=== PATIENT | female | born 1955 | race African-American/Black ===

== ENCOUNTER 2016-10-10 21:59 | Observation (INO) | payer MEDICARE, OTHER ==
[~2016-10-10] VITALS: Ht 165.1 cm; Wt 140.5 kg
[2016-10-11] VITALS (7 sets, daily range): BP systolic 125–156; RESP 16–22; TEMP 98.5–99.3; Ht 165.1 cm; Wt 140.5 kg
[2016-10-11] MEDS ORDERED: SODIUM CHLORIDE 0.9% 100 ML IV ONE (00:49)
[2016-10-11] MEDS ORDERED: NITROGLYCERIN 2% OINT 1 INCH PKT TOPICAL ONE (00:49)
[2016-10-11] MEDS ORDERED: CEFTRIAXONE 1 GM VIAL ONE (00:49)
[2016-10-11] MEDS ORDERED: SODIUM CHLORIDE 0.9% 1,000 ML ONE (00:49)
[2016-10-11] MEDS ORDERED: Furosemide 40 MG/4 ML VIAL ONE (00:49)
[2016-10-11] MEDS ORDERED: AZITHROMYCIN 500 MG VIAL IV ONE (01:51)
[2016-10-11] MEDS ORDERED: SODIUM CHLORIDE 0.9% 250 ML IV ONE (01:52)
[2016-10-11] MEDS ORDERED: GLUCAGON 1 MG VIAL IM PRN (03:20)
[2016-10-11] MEDS ORDERED: SALINE FLUSH 10 ML FLUSH PRN (03:20)
[2016-10-11] MEDS ORDERED: DEXTROSE 50% SYRINGE 50 ML IV PRN (03:20)
[2016-10-11] MEDS: SODIUM CHLORIDE 0.9% FLUSH BAG 500 ML IV SCH (06:15)
[2016-10-11] MEDS ORDERED: ARTIF TEARS OP SOLN 0.4ML EYE EACH PRN (08:00)
[2016-10-11] MEDS ORDERED: OXYCODONE/APAP 5/325 TAB PO PRN (08:00)
[2016-10-11] MEDS: SALINE FLUSH 10 ML FLUSH SCH ×2 (08:53→21:26)
[2016-10-11] MEDS: DORZOL/TIM 2%-0.5% 10 ML EYE EACH SCH ×2 (08:54→21:32)
[2016-10-11] MEDS: DOCUSATE SOD 100 MG CAP PO SCH (08:56)
[2016-10-11] MEDS: GABAPENTIN 300 MG CAP PO SCH ×3 (08:56→21:27)
[2016-10-11] MEDS: FOLIC ACID 1 MG TAB PO SCH (08:57)
[2016-10-11] MEDS: LEVEMIR INSULIN SUBQ SCH ×2 (10:01→21:28)
[2016-10-11] MEDS: CEFTRIAXONE 1 GM in SODIUM CHLORIDE 0.9% 50 ML IV SCH (10:01)
[2016-10-11] MEDS: PREDNISONE 20 MG TAB PO SCH (18:30)
[2016-10-11] MEDS: HCTZ 25 MG TAB PO SCH (18:31)
[2016-10-11] MEDS ORDERED: LATANOPROST OP SOLN EYE EACH SCH (21:00)
[2016-10-11] MEDS ORDERED: ASPIRIN EC 81 MG TAB PO SCH (21:00)
[2016-10-11] MEDS ORDERED: ROSUVASTATIN 5 MG TAB PO SCH (21:00)
[2016-10-11] MEDS ORDERED: PANTOPRAZOLE 40 MG TAB PO SCH (21:00)
[2016-10-12 04:21] VITALS: BP_SYST 155; RESP 16; TEMP 97.7
[2016-10-12] MEDS: SODIUM CHLORIDE 0.9% FLUSH BAG 500 ML IV SCH (05:16)
[2016-10-12 07:30] VITALS: BP_SYST 138; TEMP 98.3
[2016-10-12 07:31] VITALS: RESP 16
[2016-10-12] MEDS: LEVEMIR INSULIN SUBQ SCH (08:45)
[2016-10-12] MEDS: CEFTRIAXONE 1 GM in SODIUM CHLORIDE 0.9% 50 ML IV SCH (08:46)
[2016-10-12] MEDS: FOLIC ACID 1 MG TAB PO SCH (08:46)
[2016-10-12] MEDS: DORZOL/TIM 2%-0.5% 10 ML EYE EACH SCH (08:46)
[2016-10-12] MEDS: HCTZ 25 MG TAB PO SCH (08:46)
[2016-10-12] MEDS: SALINE FLUSH 10 ML FLUSH SCH (08:46)
[2016-10-12] MEDS: GABAPENTIN 300 MG CAP PO SCH (08:47)
[2016-10-12] MEDS: PREDNISONE 20 MG TAB PO SCH (08:47)
[2016-10-12] MEDS: DOCUSATE SOD 100 MG CAP PO SCH (08:47)
[2016-10-12] MEDS ORDERED: AZITHROMYCIN 250 MG TAB PO SCH (09:00)
[2016-10-12] MEDS ORDERED: amLODIPine 5 MG TAB PO SCH (09:00)
[2016-10-12] MEDS ORDERED: MISSING DOSE XX ONE (10:45)
[2016-10-12 12:22] VITALS: BP_SYST 157; TEMP 98.3
[2016-10-12 12:23] VITALS: RESP 16
[2016-10-12 14:10] VITALS: BP_SYST 157; RESP 16; TEMP 98.3
== END 2016-10-12 13:03 | disposition home or self-care (01) ==
LOC: ER 21:59 → EMR 10-11 01:41 → ENPENDDIS 10-11 01:41 → 3NT 10-11 02:42
PROVIDERS: ADMIT Internal Medicine; ATTEND Internal Medicine
CPT/HCPCS: 36415 ×2; 71010 ×2; 80048 ×2; 80053 ×2; 81001 ×2; 82550 ×2; 82553 ×2; 82947 ×2; 83036 ×2; 83605 ×2; 83880 ×2; 84484 ×2; 85025 ×2; 86713 ×2; 87040 ×2; 87071 ×2; 87088 ×2; 87278 ×2; 87299 ×2; 93005 ×2; 93306 ×2; 94799; 96361 ×2; 96365 ×2; 96367 ×2; 96375 ×2; 97799; 99219; 99285; G0378; J0696; J7050; J7512